=== PATIENT | male | born 2000 | race Caucasian/White ===

== ENCOUNTER 2019-06-25 17:07 | Emergency (ER) | payer OTHER ==
[2019-06-25 17:14] VITALS: BP 138/80; PULSE 90; TEMP 98; BMI 36.9
--- NOTE | 2019-06-25 17:52 | PDOC ---
History of Present Illness - General Chief Complaint: Pain Stated Complaint: LOWER BACK PAIN History Source: Patient Exam Limitations: No Limitations - History of Present Illness Initial Comments: 06/25/19 17:47 Patient is a 18-year-old male with no past medical history planes of pain over his tailbone x1 week. States the pain has been progressively worsening now it is 9/10 throbbing continuously worse with walking, unable to sit on his buttocks. Denies any fever, chills. PMD: Dr. Lynch PMHX: Negative PSOCHX: occ etoh, neg drug, neg cig ALL: NKDA GENERAL/CONSTITUTIONAL: [No fever or chills. No weakness. No weight change.] GASTROINTESTINAL: [No nausea, vomiting, diarrhea or constipation. No rectal bleeding.] GENITOURINARY: [No dysuria, frequency, or change in urination.] MUSCULOSKELETAL: [No joint or muscle swelling or pain. No neck or back pain.] SKIN AND BREASTS: [No rash or easy bruising.] ALLERGIC/IMMUNOLOGIC: [No hives or skin allergy. No latex allergy.] GENERAL: [The patient is awake, alert, and fully oriented, in mild painful distress.] HEAD: [Normal with no signs of trauma.] ABDOMEN: [Soft, nontender, normoactive bowel sounds. No guarding, no rebound. No masses.] EXTREMITIES: [Normal range of motion, no edema. No clubbing or cyanosis. No cords, erythema, or tenderness.] NEUROLOGICAL: [Cranial nerves II through XII grossly intact. Normal speech, normal gait.] PSYCH: [Normal mood, normal affect.] SKIN: [Warm, Dry, normal turgor, tender swelling to the proximal fissure buttocks, mild surrounding erythema] Past History - Past Medical History Allergies/Adverse Reactions: Allergies Allergy/AdvReac Type Severity Reaction Status Date / Time No Known Allergies Allergy Verified 06/25/19 17:13 Home Medications: Ambulatory Orders No Home Medications 0 dose .ROUTE UTDICT 05/25/12 Ibuprofen [Motrin -] 600 mg PO QID #28 tablet 06/25/19 COPD: No - Immunization History Immunization Up to Date: Yes - Psycho Social/Smoking Cessation Hx Smoking Status: No Smoking History: Never smoked Number of Cigarettes Smoked Daily: 0 *Physical Exam - Vital Signs Last Vital Signs Temp Pulse Resp BP Pulse Ox 98 F 90 18 138/80 100 06/25/19 17:10 06/25/19 17:10 06/25/19 17:10 06/25/19 17:10 06/25/19 17:10 Procedures - Incision and Drainage I&D Site: Bilateral: Buttock Anesthesia: 1% Lidocaine Volume(ml): 10 Blade Size: 11 Iodinated Packin/2 in Complications: none Dressing: Yes Medical Decision Making - Medical Decision Making 06/25/19 17:47 Patient is a 18-year-old male with no past medical history planes of pain over his tailbone x1 week. States the pain has been progressively worsening now it is 9/10 throbbing continuously worse with walking, unable to sit on his buttocks. Denies any fever, chills. Symptoms consistent with pilonidal cyst possible abscess Will do an aspiration' Purulent discharge and aspiration renny I&D Procedure note I&D of abscess with copious amount of purulent discharge mixed with blood, packed with gauze, dry sterile dressing applied. Patient instructed to return in 24 to 48 hours for packing removal. Instructed patient on sitz bath's after packing is removed. Will not discharge patient on antibiotics at this time, erythema seems to be related to inflammatory changes. I discussed the physical exam findings, ancillary test results and final diagnoses with the patient. I answered all of the patient's questions. The patient was satisfied with the care received and felt comfortable with the discharge plan and treatment plan. The Patient agrees to follow up with the primary care physician within 24-72 hours. Discharge - Discharge Information Problems reviewed: Yes Clinical Impression/Diagnosis: Pilonidal abscess Condition: Stable Disposition: HOME - Additional Discharge Information Prescriptions: Ibuprofen [Motrin -] 600 mg PO QID #28 tablet - Follow up/Referral Referrals: Davie Peters MD [Primary Care Provider] - - Patient Discharge Instructions Patient Printed Discharge Instructions: DI for Pilonidal Cyst Drainage and Removal Additional Instructions: Your Discharge Instructions: You must call primary care physician within 24 hours to arrange follow-up. Return to the Emergency Department with any new, persistent or worsening symptoms, for fever, chills, SOB, dizziness or any other concerning changes that may occur. - Post Discharge Activity
== END 2019-06-25 18:08 | disposition home or self-care (01) ==
LOC: JERFT 17:07
PROC: 0J990ZZ Drainage of Buttock Subcutaneous Tissue and Fascia, Open Approach (ICD-10-PCS; principal; 2019-06-25)
DX: L05.01 Pilonidal cyst with abscess (principal)
CPT/HCPCS: 10080; 99282-25

== ENCOUNTER 2020-01-04 12:04 | Emergency (ER) | payer OTHER ==
[2020-01-04 12:16] VITALS: BP 165/89; PULSE 81; TEMP 98.7; BMI 37.2
--- NOTE | 2020-01-04 12:27 | PDOC ---
Rapid Medical Evaluation Chief Complaint: Abscess Boil Time Seen by Provider: 01/04/20 12:14 Medical Evaluation: Allergies Allergy/AdvReac Type Severity Reaction Status Date / Time No Known Allergies Allergy Verified 01/04/20 12:16 Vital Signs Temp Pulse Resp BP Pulse Ox 98.7 F 81 19 165/89 99 01/04/20 12:14 01/04/20 12:14 01/04/20 12:14 01/04/20 12:14 01/04/20 12:14 01/04/20 12:26 CC: pilonidal cyst recurrence, TTP, no drainage Exam: noted fluctulant area to gluteal cleft Plan: i&d Discharge Disposition - Diagnosis Pilonidal abscess - Referrals - Patient Instructions - Post Discharge Activity
--- NOTE | 2020-01-04 12:36 | PDOC ---
History of Present Illness - General Chief Complaint: Abscess Boil Stated Complaint: LWR BACK PAIN(CYST) Time Seen by Provider: 01/04/20 12:14 - History of Present Illness Initial Comments: 01/04/20 12:33 19-year-old male without comorbidities presents for evaluation of painful area on his buttocks which has been present for 2-1/2 weeks. No systemic symptoms or drainage from the area. Previous history of an incision and drainage of a pilonidal cyst. Past History - Medical History Allergies/Adverse Reactions: Allergies Allergy/AdvReac Type Severity Reaction Status Date / Time No Known Allergies Allergy Verified 01/04/20 12:16 Home Medications: Ambulatory Orders No Home Medications 0 dose .ROUTE UTDICT 05/25/12 Ibuprofen [Motrin -] 600 mg PO QID #28 tablet 06/25/19 Cephalexin [Keflex] 500 mg PO QID #40 capsule 01/04/20 Ibuprofen [Motrin -] 600 mg PO TID #30 tablet 01/04/20 Sulfamethoxazole/Trimethoprim [Bactrim Ds -] 1 tab PO BID #14 tablet 01/04/20 COPD: No - Immunization History Immunization Up to Date: Yes - Psycho-Social/Smoking History Smoking Status: No Smoking History: Never smoked Number of Cigarettes Smoked Daily: 0 Information on smoking cessation initiated: No - Substance Abuse Hx (Audit-C & DAST Scrn) How often the patient has a drink containing alcohol: Never Score: In Men: 4 or > Positive; In Women: 3 or > Positive: 0 Screen Result (Pos requires Nsg. Audit-10AR): Negative In the last yr the pt used illegal drug/Rx for NonMed reason: No Score: Yes response is considered Positive: 0 Screen Result (Positive result requires Nsg. DAST-10): Negative Review of Systems - Review of Systems Constitutional: No: Fever Integumentary: Yes: See HPI, Lesions *Physical Exam - Vital Signs Last Vital Signs Temp Pulse Resp BP Pulse Ox 98.7 F 81 19 165/89 99 01/04/20 12:14 01/04/20 12:14 01/04/20 12:14 01/04/20 12:14 01/04/20 12:14 - Physical Exam 01/04/20 12:33 There is a firm indurated mildly warm area on the skin overlying the lumbosacral spine. Without fluctuance. There is significant tenderness no erythema. Medical Decision Making - Medical Decision Making 01/04/20 12:33 This is a recurrent pilonidal cyst which is about 4 cm in circumference which is not ready to be drained. I encouraged warm compresses p.o. Bactrim and Keflex as well as Motrin and Tylenol follow-up with general surgery. This is the second occurrence of the same cyst. This cyst may need to be excised formally. I have reviewed the pathophysiology with the patient. They are in agreement with the treatment plan all questions were answered to their satisfaction. Understanding for follow-up without fail was also conveyed to the patient. Again they are in agreement. Discharge - Discharge Information Problems reviewed: Yes Clinical Impression/Diagnosis: Pilonidal abscess Condition: Stable Disposition: HOME - Admission No - Follow up/Referral Referrals: Rene León MD [Staff Physician] - - Patient Discharge Instructions Additional Instructions: Return to the emergency room for further issues warm compresses as directed. Please take the antibiotics as directed as well as the Motrin and Tylenol as directed. Please stop the Motrin if it bothers your stomach. Please take it with food. Follow-up with general surgery in 2 to 3 days without fail for further evaluation and treatment options. - Post Discharge Activity
== END 2020-01-04 12:47 | disposition home or self-care (01) ==
LOC: JERFT 12:04
DX: L05.01 Pilonidal cyst with abscess (principal)
CPT/HCPCS: 99282-25

== ENCOUNTER 2020-12-10 03:21 | Emergency (ER) | payer OTHER ==
[2020-12-10 03:54] VITALS: BP 131/80; PULSE 99; TEMP 98.1; BMI 36.6
[2020-12-10] MEDS ORDERED: IBUPROFEN 600 MG TABLET (FP) PO ONE ×2 (04:43)
== END 2020-12-10 06:03 | disposition home or self-care (01) ==
LOC: JER 03:21
DX: R07.81 Pleurodynia (principal)
CPT/HCPCS: 71046-TC-FY; 99283-25